=== PATIENT | male | born 1985 | race Caucasian/White ===

== ENCOUNTER 2019-08-14 01:36 | Emergency (ER) | payer OTHER ==
[~2019-08-14] VITALS: Ht 175.3 cm; Wt 73.8 kg
[2019-08-14] MEDS ORDERED: HYDROcodone/APAP 5/325 TABLET PO ONE (02:00)
--- NOTE | 2019-08-14 02:08 | NUR ---
Patient states he fell this afternoon and hurt his left knee. He states he tripped over the curb. Denies LOC. Patient in NAD. Respirations even and unlabored.
[2019-08-14] MEDS ORDERED: HYDROcodone/APAP 5/325 TABLET ONE (02:10)
--- NOTE | 2019-08-14 02:38 | NUR ---
Attempted to medicate patient for pain per mar, however patient was not easily arousable verbally and was sleeping. ERP agreed to hold meds at this time.
[2019-08-14 03:32] VITALS: BP 100/61
--- NOTE | 2019-08-14 03:33 | NUR ---
Patient sleeping in [facility]. Awaiting xray results.
--- NOTE | 2019-08-14 04:31 | NUR ---
Discharge instructions given. All questions and concerns addressed. Patient ambulatory with a steady gait. Belongings with patient.
== END 2019-08-14 04:36 | disposition home or self-care (01) ==
LOC: ED 04:31
DX: S80.02XA Contusion of left knee, initial encounter (principal); S80.01XA Contusion of right knee, initial encounter; W01.0XXA Fall on same level from slipping, tripping and stumbling without subsequent striking against object, initial encounter; Y93.21 Activity, ice skating; Y92.410 Unspecified street and highway as the place of occurrence of the external cause; Y99.8 Other external cause status
CPT/HCPCS: 99283

== ENCOUNTER 2019-10-12 21:42 | Emergency (ER) | payer MEDICAID ==
[~2019-10-12] VITALS: Ht 175.3 cm; Wt 80.0 kg
[2019-10-12 21:46] VITALS: BP 107/64
--- NOTE | 2019-10-12 21:55 | NUR ---
RN to bedside, task RN at bedside triaging patient. Per Geramn's at bedside patient made statements claiming suicidal ideadation. While screening was being done, patient now denies any suicidal ideation despite multiple attempts at reassessment. Patient is not very cooperative, refuses to make eye contact even turn to acknowledge RN's. Initial vitals are within normal limits (see triage) Awaiting labs and reevaluations by provider.
[2019-10-12] MEDS ORDERED: ONDANSETRON ODT 4 MG PO ONE (22:00)
[2019-10-12] MEDS ORDERED: PLEASE ENTER ALLERGIES MC SCH (22:00)
[2019-10-12 22:01] LABS: BASOPHILS # (AUTO) 0.07 x10^3/uL (0-0.1); BASOPHILS % (AUTO) 1 % (0-1); EOSINOPHILS % (AUTO) 0 % (1-7); LYMPHOCYTES # (AUTO) 1.35 x10^3/uL (1-3.4); LYMPHOCYTES % (AUTO) 13 % (22-44); MD NO; MEAN CORPUSCULAR HEMOGLOBIN 30.2 pg (27.5-34.5); MEAN CORPUSCULAR HGB CONC 34.1 g/dL (33.2-36.2); MEAN CORPUSCULAR VOLUME 88.6 fL (81-97); MEAN PLATELET VOLUME 8.7 fL (7.4-10.4); MONOCYTES # (AUTO) 0.64 x10^3/uL (0.2-0.8); MONOCYTES % (AUTO) 6 % (2-9); NEUTROPHILS # (AUTO) 8.69 x10^3/uL (1.8-6.8); NEUTROPHILS % (AUTO) 81 % (42-75); PLATELET COUNT 239 x10^3/uL (130-400); RED BLOOD COUNT 5.29 x10^6/uL (4.38-5.82); RED CELL DISTRIBUTION WIDTH 13.6 % (9.4-14.8)
[2019-10-12 22:13] LABS: ALANINE AMINOTRANSFERASE 54 U/L (12-78); ALBUMIN 3.8 g/dL (3.4-5.0); ANION GAP 9 mmol/L (5-15); CALCIUM 9.3 mg/dL (8.5-10.1); CHLORIDE 107 mmol/L (98-107); CREATININE 0.89 mg/dL (0.7-1.3)
[2019-10-12 22:15] LABS: ALKALINE PHOSPHATASE 90 U/L (45-117); BILIRUBIN,TOTAL 1.1 mg/dL (0.2-1.0); TOTAL PROTEIN 7.6 g/dL (6.4-8.2)
[2019-10-12] MEDS ORDERED: ONDANSETRON ODT 4 MG ONE (22:48)
== END 2019-10-12 23:08 | disposition home or self-care (01) ==
LOC: ED 22:21
DX: M54.5 Low back pain (principal); R11.2 Nausea with vomiting, unspecified; G89.29 Other chronic pain; F11.23 Opioid dependence with withdrawal; Z72.9 Problem related to lifestyle, unspecified
CPT/HCPCS: 36415; 80053; 85025; 99283

== ENCOUNTER 2019-10-13 04:28 | Emergency (ER) | payer MEDICAID ==
[~2019-10-13] VITALS: Ht 175.3 cm; Wt 71.0 kg
[2019-10-13] MEDS ORDERED: ONDANSETRON ODT 8 MG ONE (04:52)
--- NOTE | 2019-10-13 04:56 | NUR ---
Pt presents to room reporting body aches, chills, and abdominal pain since yesterday. Pt cannot describe any other symptoms. Pt shows no signs of distress during assessment.
[2019-10-13] MEDS ORDERED: ONDANSETRON ODT 4 MG PO ONE (05:00)
[2019-10-13 05:28] VITALS: BP 128/83
== END 2019-10-13 05:30 | disposition home or self-care (01) ==
LOC: ED 05:27
DX: K29.00 Acute gastritis without bleeding (principal); R11.0 Nausea
CPT/HCPCS: 99283; Q0162